=== PATIENT | male | born 1950 | race Two or more races ===

== ENCOUNTER 2018-10-01 07:42 | Outpatient (CLI) | payer OTHER ==
[~2018-10-01 07:42] MED LIST: PROSCAR5 MG PO; TAMS0.4C PO
== END 2018-10-01 07:59 | disposition home or self-care (01) ==
LOC: EKG 07:42
DX: Z01.810 Encounter for preprocedural cardiovascular examination (principal); K40.90 Unilateral inguinal hernia, without obstruction or gangrene, not specified as recurrent

== ENCOUNTER 2018-10-06 06:30 | Day surgery (SDC) | payer OTHER ==
[2018-10-06] MEDS ORDERED: PERCOCET 5-3251 EACH PO (14:08)
[2018-10-06] MEDS ORDERED: POLY119PG PO (14:09)
[2018-10-06] MEDS ORDERED: NEURONTIN300 MG PO (14:09)
== END 2018-10-06 17:00 | disposition home or self-care (01) ==
LOC: CIR.AMB 06:30
DX: K40.90 Unilateral inguinal hernia, without obstruction or gangrene, not specified as recurrent (principal)